=== PATIENT | female | born 1950 | race Caucasian/White ===

== ENCOUNTER 2021-09-04 14:42 | Observation (INO) | payer MEDICARE, BC ==
[~2021-09-04] VITALS: Ht 147.3 cm; Wt 242.0 kg
[2021-09-04 15:44] LABS: BASO % 0.5 % (0.0-2.0); EOS % 0.3 % (0.0-4.0); GRAN # 6.2 K/mm3 (1.4-6.5); GRAN % 78.7 % (42.2-75.2); HEMATOCRIT 40.3 % (37.0-47.0); HEMOGLOBIN 13.6 g/dl (12.5-16.0); LYMPH # 0.9 K/mm3 (1.2-3.4); LYMPH % 11.7 % (20.0-51.0); MEAN CELL VOLUME 87 fl (80.0-100.0); MEAN CORPUSCULAR HEMOGLOBIN 29 pg (27-31); MEAN CORPUSCULAR HGB CONC 34 g/dl (33.0-37.0); MEAN PLATELET VOLUME 9.5 fl (7.4-10.4); MONO # 0.7 K/mm3 (0.1-0.6); MONO % 8.5 % (1.7-9.3); PLATELET COUNT 386 K/mm3 (130-400); RED BLOOD COUNT 4.64 M/mm3 (4.10-5.30); REDCELL DISTRIBUTION WIDTH-CV 13.2 % (11.5-14.5)
[2021-09-04 16:01] LABS: ALANINE AMINOTRANSFERASE 36 U/L (0-55); ALKALINE PHOSPHATASE 55 U/L (40-150); ANION GAP 14 mmol/L (7-16); AST,SGOT 22 U/L (5-34); BILIRUBIN,TOTAL 0.9 mg/dL (0.2-1.2); BLOOD UREA NITROGEN 10 mg/dL (10-20); CALCIUM 9.4 mg/dL (8.4-10.2); CARBON DIOXIDE 23 mmol/L (23-31); CHLORIDE 100 mmol/L (98-107); CREATININE, serum 0.82 mg/dL (0.57-1.11); GLUCOSE 126 mg/dL (70-99); LIPASE 13 U/L (8-78); SODIUM 137 mmol/L (136-145); TOTAL PROTEIN 7.4 gm/dL (6.2-8.1)
[2021-09-04 16:08] LABS: TROPONIN-I < 0.010 ng/mL (0.00-0.033)
[2021-09-04] MEDS ORDERED: PRILOSEC 20MG20 MG PO (20:36)
[2021-09-04] MEDS ORDERED: PAXIL 10MG10 MG PO (20:37)
[2021-09-04] MEDS ORDERED: HCTZ12.5TAB PO (20:37)
[2021-09-04] MEDS ORDERED: COZAAR 50MG50 MG/TAB PO (20:37)
[2021-09-04] MEDS ORDERED: ZANAFLEX2 MG PO (20:38)
[2021-09-04] MEDS ORDERED: IBU400 MG PO (20:40)
[2021-09-04] MEDS ORDERED: ATIVAN 0.50.5 MG/TAB PO (20:40)
--- NOTE | 2021-09-04 22:47 | NUR ---
Patient arrived to surgical unit from ER around 2039. Denies pain and discomfort. Peripheral INT to right AC. Aware that she is NPO after midnight for Lexiscan tomorrow. Also to have Echo tomorrow. Troponins negative. Telemetry in place: normal sinus. In bed with call light within reach. Voices no questions, needs, or concerns at this time. In bed with call light within reach.
[2021-09-05] VITALS (9 sets, daily range): BP systolic 116–148; BP diastolic 73–878; PULSE 72–133; TEMP 97.5–98
--- NOTE | 2021-09-05 05:52 | NUR ---
Patient has denied pain and discomfort since arriving to surgical unit. Troponins have been negative. Has been NPO since midnight. Voices no questions, needs, or concerns at this time. In bed with call light within reach.
[2021-09-05 06:57] LABS: BASO % 0.4 % (0.0-2.0); EOS # 0.1 K/mm3 (0.0-0.7); EOS % 0.8 % (0.0-4.0); GRAN % 57.1 % (42.2-75.2); HEMOGLOBIN 12.4 g/dl (12.5-16.0); LYMPH % 27.7 % (20.0-51.0); MEAN CELL VOLUME 87 fl (80.0-100.0); MEAN CORPUSCULAR HEMOGLOBIN 30 pg (27-31); MEAN CORPUSCULAR HGB CONC 34 g/dl (33.0-37.0); MEAN PLATELET VOLUME 9.8 fl (7.4-10.4); MONO % 13.7 % (1.7-9.3); PLATELET COUNT 361 K/mm3 (130-400); RED BLOOD COUNT 4.21 M/mm3 (4.10-5.30); REDCELL DISTRIBUTION WIDTH-CV 13.5 % (11.5-14.5)
[2021-09-05 07:01] LABS: HEMATOCRIT 36.8 % (37.0-47.0)
[2021-09-05 07:13] LABS: CALCIUM 8.8 mg/dL (8.4-10.2); CREATININE, serum 0.7 mg/dL (0.57-1.11); POTASSIUM 3.5 mmol/L (3.5-4.5)
--- NOTE | 2021-09-05 09:11 | NUR ---
Initial visit; Patient thanked Brine Plant Operator for looking in on her and offering God's blessings. Patient received a phone call while Brine Plant Operator was there. Brine Plant Operator will look in on Martha another time.
--- NOTE | 2021-09-05 10:04 | NUR ---
PT TO LEXISCAN WITH NUC MED. VSS ASSESSMENTS COMPLETE. PT DENIES NEEDS OR PAIN AT THIS TIME. TROPONINS NEGATIVE.
--- NOTE | 2021-09-05 14:25 | NUR ---
The patient was downgraded to observation status. SIMONA and RN Online Content Developer met with the patient and her son to notify. The patient verbalized understanding. SIMONA presented and read the Medicare Outpatient Observation Notice Form to the patient. The patient signed the form and SIMONA provided her with a copy. SIMONA then followed up with the patient to discuss discharge plan. The patient lives in [place], [place] with her , Jameel. She has been in [place] since last Saturday visiting her family. Jameel is back in [place]. The patient states that he has Alzheimer's, but is safe and independent at home. She reports independence with ADLs and does not have any DME. The patient's PCP is Dr. Theresa Ahn in [place]. The patient does not have a DPOA-HC in EMR, but she states that she does have one completed and that she designated her son, Jameel Ackerman (#[phone]). The patient plans to return back to her son's home in [place] upon discharge. No additional needs at this time. *Discharge plan: home with family*
--- NOTE | 2021-09-05 16:40 | NUR ---
DISCHARGE INSTRUCTIONS REVIEWED WITH FAMILY AND PATIENT. QUESTIONS ANSWERED. PT LEFT UNIT AMBULATORY.
== END 2021-09-05 16:41 | disposition home or self-care (01) ==
LOC: COL.ER 14:42 → SURG 18:31
PROVIDERS: Emergency Medicine; Student in an Organized Health Care Education/Training Program; ADMIT Family Medicine
DX: R07.9 Chest pain, unspecified (principal); R79.89 Other specified abnormal findings of blood chemistry; I10 Essential (primary) hypertension; K21.9 Gastro-esophageal reflux disease without esophagitis; M54.6 Pain in thoracic spine; Z20.822 Contact with and (suspected) exposure to COVID-19; F41.9 Anxiety disorder, unspecified; F32.A Depression, unspecified; E66.01 Morbid (severe) obesity due to excess calories; Z68.42 Body mass index [BMI] 45.0-49.9, adult; Z90.49 Acquired absence of other specified parts of digestive tract; Z79.899 Other long term (current) drug therapy; Z87.891 Personal history of nicotine dependence
CPT/HCPCS: A9500; G0378; J1650; J2785; Q9967